=== PATIENT | male | born 1960 | race Caucasian/White ===

== ENCOUNTER 2018-09-28 07:03 | Emergency (ER) | payer OTHER ==
[~2018-09-28] VITALS: Ht 162.6 cm; Wt 72.3 kg
[2018-09-28 07:13] VITALS: Ht 162.6 cm; Wt 72.3 kg
[2018-09-28 07:43] VITALS: BP 155/82
== END 2018-09-28 07:44 | disposition home or self-care (01) ==
LOC: ED 07:03
DX: R07.89 Other chest pain (principal); R05 Cough; I10 Essential (primary) hypertension; E11.9 Type 2 diabetes mellitus without complications; Z86.73 Personal history of transient ischemic attack (TIA), and cerebral infarction without residual deficits
CPT/HCPCS: J1885